=== PATIENT | male | born 1970 | race American Indian/Alaskan Native ===

== ENCOUNTER 2017-04-08 20:23 | Emergency (ER) | payer OTHER ==
[~2017-04-08] VITALS: Ht 190.5 cm; Wt 86.2 kg
[2017-04-08] MEDS ORDERED: CEPHALEXIN500 MG PO (21:34)
== END 2017-04-08 21:53 | disposition home or self-care (01) ==
LOC: ED 20:23
PROC: 0HQ1XZZ Repair Face Skin, External Approach (ICD-10-PCS; principal; 2017-04-08)
DX: S01.511A Laceration without foreign body of lip, initial encounter (principal); Y04.0XXA Assault by unarmed brawl or fight, initial encounter
CPT/HCPCS: 12013; 99283

== ENCOUNTER 2017-09-06 11:25 | Inpatient (IN) | payer OTHER ==
[~2017-09-06] VITALS: Ht 190.5 cm; Wt 84.5 kg
[~2017-09-06 11:25] MED LIST: CEPHALEXIN500 MG PO
--- NOTE | 2017-09-06 15:21 | NUR ---
ASSISTED NURSE WITH GETTING PATIENT ADMITTED AND SETTLED. INITAL VITAL SIGNS TAKEN.
--- NOTE | 2017-09-06 15:36 | NUR ---
patient admited. vitals taken. patient with girl friend in room. patient very painful with movement. patient looks diaphoretic and pale. temp 103.1. ice packs placed under arms and wash cloth placed on forehead. lr running at 200mls/hr. called dr. scherer for update on temp. ds to get note to him.
--- NOTE | 2017-09-06 16:40 | NUR ---
DR. MARINA TO FLOOR TO ASSESS PATIENT.UPDATED ON TEMP AND VITALS. TO SEE PATIENT.
--- NOTE | 2017-09-06 17:16 | NUR ---
LR BOLUS STARTED. MERRUM STARTED. PATIENT CAME TO FLOOR WITH TEMP OF 103.1. DR. MARINA AWARE. PLAN FOR SURGERY. SIGNED CONSENT. NPO. PATIENT HAS URINAL AT BEDSIDE. PLAN FOR SURGERY TONIGHT.
--- NOTE | 2017-09-06 17:39 | NUR ---
lr bolus complete. started antibiotic and maintance fluids. morphine 6 mg given. vitals taken. surgical wipe down done. consent signed.girlfriend in room to assist. scds applied.
--- NOTE | 2017-09-06 19:26 | NUR ---
RECIEVED REPORT FROM DAY SHIFT NURSE. PATIENT RESTING IN BED WITH GIRLFRIEND AT BEDSIDE. IVF INFUSING W/O DIFFICULTY. SCDS IN PLACE. PATIENT DENIES NEEDS AT THIS TIME. CALL LIGHT IN REACH.
--- NOTE | 2017-09-06 20:07 | NUR ---
VS OBTAINED. CALLED MD REGARDING TEMP. OBTAINED ORDER. PLAN FOR SURGERY AT 2100.
--- NOTE | 2017-09-06 20:17 | NUR ---
PATIENT DENIES NEED FOR PAIN MEDICATION AT THIS TIME. STATES HE WOULD LIKE TO TAKE A NAP TIL 2100.
--- NOTE | 2017-09-06 20:55 | NUR ---
OR NURSE TRANSPORTING PATIENT TO OR AT THIS TIME.
--- NOTE | 2017-09-06 23:13 | NUR ---
09/06/17 2311 Nellie Aguilar PT ARRIVED TO PACU. RESTLESS, MAINTAINING OWN AIRWAY.
--- NOTE | 2017-09-06 23:55 | NUR ---
PATIENT BACK TO MS UNIT. TRANSFRERRED FROM STRETCHER TO BED INDEPENDENTLY. BARRIGA IN PLACE. YASMEEN DRAIN IN PLACE. CONT PULSE OX APPLIED. SCDS ON. VS OBTAINED. SIGNIFICANT OTHER AT BEDSIDE. HYDRATION OFFERED. IVF INFUSING W/O DIFFICULTY. MEPILEX INTACT WITH NO DRAINAGE. 2 LAP SITES COVERERD WITH STERISTRIPS, MINIMAL BLOODY DRAINAGE. PT STATES HIS ABD FEELS SORE, RATES PAIN ABOUT 4-5/10. MORPHINE ADMINISTERED. PT DENIES FURTHER NEEDS. CALL LIGHT IN REACH.
--- NOTE | 2017-09-07 01:03 | NUR ---
PT RESTING IN BED. SPOUSE AT BEDSIDE. PT RATES PAIN 3-4/10. DENIES THE NEED FOR PAIN MEDICATION AT THIS TIME. VS OBTAINED. SCDS IN PLACE. CONT. PULSE OX IN PLACE. PT DENIES NEEDS.
--- NOTE | 2017-09-07 02:17 | NUR ---
BARRIGA EMPTIED. YASMEEN DRAIN EMPTIED-SANGUINOUS DRAINAGE. PT RATES PAIN 3/10 AND REQUESTED FOR PAIN MEDICATION. LAP SITE ABOVE UMBILLICUS DRAINING BLOOD ONTO GOWN. COVERED WITH STERILE GAUZE AND SECURED WITH HYPAFIX TAPE. MEPILEX C/D/I. STERISTRIPS ALL INTACT. LUNGS CLEAR, HR REG, NO EDEMA, ACTIVE BS. HYDRATION OFFERED. PT TOLERATING CLEAR LIQUIDS. NO N/V. DENIES FURTHER NEEDS. SCDS IN PLACE, CALL LIGHT IN REACH.
--- NOTE | 2017-09-07 02:55 | NUR ---
VS OBTAINED. PT STATES PAIN AT A TOLERABLE LEVEL, DENIES THE NEED FOR PAIN MEDICATION. PT TOLERATING CLEAR LIX WELL. HE IS ON HIS THIRD APPLE JUICE. SCDS IN PLACE. DENIES FURTHER NEEDS. CALL BARROW IN REACH.
--- NOTE | 2017-09-07 04:35 | NUR ---
PT RESTING IN BED. EMPTIED YASMEEN DRAIN. NO C/O PAIN AT THIS TIME. PT DENIES NEEDS. CALL LIGHT IN REACH.
--- NOTE | 2017-09-07 05:48 | NUR ---
PT REQUESTING FOR PAIN MEDICAITON. RATES PAIN 5/10, MORPHINE ADMINISTERED. BARRIGA REMOVED. PT DENIES FURTHER NEEDS. CALL LIGHT IN REACH.
--- NOTE | 2017-09-07 07:33 | NUR ---
RECIEVED BEDSIDE REPORT FROM MARTHA MARTINEZ. PT SLEEPING, BREATHING EVEN AND UNLABORED. BARRIGA REMOVED AT 0545, DUE TO VOID BY 0945. YASMEEN DRAIN DRAINING WELL. PAIN WELL CONTROLLED WITH 3MG MORPHINE, GIVEN X3 OVERNIGHT. SCD IN PLACE, PULSE OX IN PLACE. NO NAUSEA OR VOMITING. LR @ 125ML/HR. AFREBRILE POST OP.
--- NOTE | 2017-09-07 07:53 | NUR ---
PATIENT IN BED DOING WELL. EMPTIED YASMEEN DRAIN. REFILLED ICE WATER. WHITEBOARD UPDATED, ROOM TIDIED.
--- NOTE | 2017-09-07 10:20 | NUR ---
PT UP AMBULATING IN HALLS WITH AGENT TICKETING GATE. TOLERATING WELL. PT REPORTS PAIN IS WELL CONTROLED.
--- NOTE | 2017-09-07 10:30 | OR ---
[facility] [address], [place] [address] Signed DATE OF OPERATION: 09/06/2017 SURGEON: Chuck Marina MD PREOPERATIVE DIAGNOSIS: Acute appendicitis, possible perforation. POSTOPERATIVE DIAGNOSES: 1. Intra-abdominal abscess with well-formed abscess cavity. 2. Perforated gangrenous appendicitis. PROCEDURES: 1. Laparoscopy with drainage of abdominal abscess. 2. Open appendectomy for perforated appendicitis, prolonged, complicated and difficult. ANESTHESIA: General endotracheal (Ramon Osman CRNA). INDICATION: This 46-year-old man has had pain since Saturday (today is Saturday) in the right lower abdomen. He does show a fair amount of toxicity with a temperature as high as 103 and a white count elevated to 13,000. A CT scan was performed upon his evaluation in the emergency room under the direction of Dr. Nathan Davila, which showed findings consistent with appendicitis and possible perforation based on local findings. He has been fluid resuscitated, given intravenous antibiotics, parenteral pain medication and so forth and he is now to undergo appendectomy preferred by a laparoscopic approach. He understands well the risks of bleeding, infection, need for open procedure, and other unforeseen complications and wished to proceed. FINDINGS: On laparoscopy, an abscess was noted in the right lower abdomen and down into the pelvis. This was drained and Gram stain and cultures were obtained from the fluid. Attempts to mobilize the appendix were unsuccessful as it was densely adherent to the retroperitoneum and therefore, conversion to open laparotomy was required. The operation was certainly prolonged, complicated, and difficult based on the position of the appendix. A well-formed abscess cavity was noted draping over the pelvic brim. The appendix itself was gangrenous and perforated and a fecalith was removed with the specimen. The terminal ileum and cecum though inflamed were not the primary process of problem. A drain was placed as well. The operation was prolonged, complicated, and difficult. Electronically Signed By: CHUCK MARINA MD 09/07/17 1030 PATIENT NAME: KODI GIRALDO OPERATIVE REPORT DATE OF : 74 PHYSICIAN: CHUCK MARINA MD REPORT #: [id number] REPORT IS CONFIDENTIAL AND NOT TO BE RELEASED WITHOUT AUTHORIZATION [facility] [address], [place] [address] Signed DESCRIPTION OF PROCEDURE: The patient was brought to the operating room, given a general endotracheal anesthetic. Preoperative antibiotic meropenem had been given as well as Zosyn in the emergency room. A Clark catheter was placed after general endotracheal anesthesia was induced. The left arm was placed at the side. The abdomen was clipped and prepared with chlorhexidine solution and draped sterilely. An infraumbilical incision was made and using an open Shaila cannula technique, pneumoperitoneum was achieved to a level of 14 mmHg of carbon dioxide gas. Intra-abdominal inspection showed no sign of ascites or carcinomatosis, but purulence was noted in the right pericolic gutter. A 12 mm epigastric port was placed and the camera was replaced to that area. Manipulation through the umbilical port did not demonstrate the appendix. A 5 mm suprapubic port was placed under direct visualization and with two hand manipulation, the cecum could be better manipulated. The terminal ileum was identified as manifested by the antimesenteric fat pad of Trealverto. A well-formed abscess was noted at the confluence of the terminal ileum and the cecum in the retroperitoneal area. Using a tube, a considerable amount of fluid was drained from the abscess cavity and some was sent for Gram stain and culture. With various manipulations, the appendix could not readily be identified. Ultimately, the anterior tenia of the cecum was followed and densely did it go to the retroperitoneum where no further laparoscopic manipulation would be successful, possible or even safe. On that basis, conversion to open operation was required The trocars were removed under direct visualization showing no sign of bleeding. The infraumbilical fascial incision was reapproximated with interrupted 0 Vicryl suture. A transverse incision was made directly over the McBurney's point. Dissection was carried through the subcutaneous tissue with electrocautery. A gridiron incision was used ultimately allowing exposure of the peritoneum, which was incised and the abdomen entered. The cecum was easily delivered into the wound. It was long and somewhat floppy. The tenia libera was followed down to the retroperitoneum where palpation could reveal a dense firm mass. Abscess fluid and a well-formed abscess cavity was noted. Various manipulations were made to deliver the appendix, but it was densely adherent to the retroperitoneum. On that basis, the incision was extended medially a bit more and incising the anterior rectus sheath and retraction of the right rectus abdominis muscle. The peritoneum was further incised and better examination of the cecum and terminal ileum area able to be accomplished. With various manipulations, the appendix could be found extending inferiorly and deeply and with a dense fecalith and firm fibrinous peel. Digital examination ultimately allowed for mobilization of it to better define it. Clips were applied to vascular pedicles as necessary, but it was a very prolonged and arduous dissection ultimately. Finally, the appendix and mesoappendix could be secured with clips, cautery, and 2-0 Vicryl suture mobilizing fully the appendix, which was relatively long, probably 10 to 12 cm in length actually. Gangrenous changes and perforation were noted at the proximal one-quarter of the appendix. The fecalith was extracted with the specimen. The base of the appendix was secured with an Endo ROBERTH stapling device. The Electronically Signed By: CHUCK MARINA MD 09/07/17 1030 PATIENT NAME: KODI GIRALDO OPERATIVE REPORT DATE OF : 74 PHYSICIAN: CHUCK MARINA MD REPORT #: [id number] REPORT IS CONFIDENTIAL AND NOT TO BE RELEASED WITHOUT AUTHORIZATION [facility] [address], [place] [address] Signed staple line was oversewn with interrupted 2-0 Vicryl suture. Irrigation was undertaken and further purulent material was removed from the pelvis. Through a separate stab incision, a 7 mm flat Attila drain was placed in the retrocecal area, draped over the pelvic brim into the pelvis. More irrigation was undertaken and once clear, plans were made for closure. The peritoneal layer was closed with running 2-0 PDS suture. The muscular layers and fascial layers closed with interrupted 2-0 PDS. Harvey's layer was reapproximated with interrupted 2-0 Vicryl and skin was closed with interrupted 3-0 Vicryl. Steri-Strips were applied to this area. The laparoscopic incisions were similarly closed with interrupted 3-0 Vicryl in deep dermal layer and Steri-Strips were applied. A Mepilex silver sponge dressing was applied to the right lower abdominal site. The drainage emanated from the separate stab incision was secured with nylon suture and attached to bulb suction. The patient was ultimately extubated and transferred to recovery room in good condition having suffered no complications. Sponge, needle, and instrument counts reported as correct x3. MD CLARE Awad/MODL /[id number] cc: Nathan Davila DO Electronically Signed By: CHUCK MARINA MD 09/07/17 1030 PATIENT NAME: KODI GIRALDO OPERATIVE REPORT DATE OF : 74 PHYSICIAN: CHUCK MARINA MD REPORT #: [id number] REPORT IS CONFIDENTIAL AND NOT TO BE RELEASED WITHOUT AUTHORIZATION
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
--- NOTE | 2017-09-07 11:48 | NUR ---
nurse in room
--- NOTE | 2017-09-07 13:01 | NUR ---
OPENED BLINDS, PT AWAKE, WATCHING TV. PT INDEPENDENT IN ROOM, UP TO BATHROOM SEVERAL TIMES. REMINDED TO JESSICA VOIDS/BM ON CHART OR SAVE UNTIL STAFF CAN CHART.
--- NOTE | 2017-09-07 15:25 | NUR ---
TOOK PT FOR A WALK.
--- NOTE | 2017-09-07 16:31 | NUR ---
PT IS SLEEPING. WILL CHECK ON LATER.
--- NOTE | 2017-09-07 18:19 | NUR ---
PT SLEEPING IN BED. TOOK VITALS.
--- NOTE | 2017-09-07 18:36 | NUR ---
PT UP TO AMBULATE SEVERAL TIMES. PER DR MARINA, RN OPENED BLINDS AND TURNED ON LIGHTS TO MAINTAIN NORMAL SLEEP PATTERNS. PT UP TO BATHROOM INDEPENDENTLY. ENCOURAGE FLUIDS URINE OUTPUT IS QS, BUT ON THE LOW END. PAIN WELL CONTROLED ON PO PAIN MEDICATIONS. PT REPOSITIONS SELF. TOLERATING ADVANCE TO FULL LIQUIDS WELL.
--- NOTE | 2017-09-07 19:22 | NUR ---
RECIEVED REPORT FROM DAY SHIFT NURSE. PT RESTING QUIETLY IN BED. GIRLFRIEND AT BEDSIDE. SCDS IN PLACE. PT DENIES NEEDS AT THIS TIME. CALL LIGHT IN REACH.
--- NOTE | 2017-09-07 20:00 | NUR ---
PATIENT RESTING IN BED. STATES HE FEELS "SEVERELY BLOATED." RATES PAIN 7/10, STATES IT FEELS LIKE PRESSURE. ABDOMEN IS FIRM. ADMINISTERED IV PAIN MEDICATION. REPOSITIONED LEGS UP ON TWO PILLOWS. PT STATES HE HAS PASSED FLATUS TODAY. NO N/V. HE DID DRINK A PITCHER OF WATER AROUND 3PM TODAY SO THAT HE COULD VOID. HE HAS NOT FELT GREAT EVER SINCE THEN. I TOLD HIM TO LAY OFF THE ORAL LIQUIDS FOR NOW UNTIL HE FEELS LESS BLOATED. APPLIED CONT. PULSE OX. SCDS IN PLACE. MEPILEX C/D/I. LUNGS CLEAR, HR REGULAR. NO EDEMA. PT IS DIAPHORETIC-ORAL TEMP AT 99.4, REMOVED BLANKETS. PT DENIES CHILLS. CALL LIGHT IN REACH.
--- NOTE | 2017-09-07 21:01 | NUR ---
AMBULATED HALLWAY WITH PATIENT. PT STATES HIS PAIN IS WORSE WITH AMBULATION, HOWEVER HE DENIES THE NEED FOR MORE PAIN MEDS.
--- NOTE | 2017-09-07 22:02 | NUR ---
PT PASSED FLATUS! VOIDING AT THIS TIME.
--- NOTE | 2017-09-08 00:01 | NUR ---
PT AMBULATING HALLWAY WITH SIGNIFICANT OTHER. PT STATES HIS ABDOMINAL DISTENTION IS "MODERATE." STATES HE IS STILL PASSING SMALL AMOUNT OF FLATUS. PT IS NO LONGER DIAPHORETIC. REQUESTS FOR PAIN MEDICATION. NORCO ADMINISTERED. SCDS IN PLACE. IVF INFUSING W/O DIFFICULTY.
--- NOTE | 2017-09-08 02:30 | NUR ---
I HAD TO WAKE PT UP TO VOID. PT ABLE TO VOID 150CC. URINE CHANG IN COLOR. PT STATES HE DID NOT EAT ENOUGH PUDDING WHEN HE TOOK THE NORCO EARLIER, FEELS NAUSEOUS. HE ALSO RATES HIS PAIN 4/10, ADMINISTERED PHENERGAN. PT DENIES FURTHER NEEDS. BS AUSCULTATED. YASMEEN DRAINING SMALL AMOUNT OF SEROUS FLUID. MEPILEX C/D/I. CALL LIGHT IN REACH.
--- NOTE | 2017-09-08 04:21 | NUR ---
PT SLEEPING. CONT. PULSE OX IN PLACE. CALL LIGHT IN REACH.
--- NOTE | 2017-09-08 06:30 | NUR ---
PT HAD NO URINE OUTPUT FOR THE LAST FOUR HOURS. BLADDER SCANNED TO FIND 40CC IN BLADDER. NOTIFIED MD OF NO URINE. OBTIANED ORDER FOR LR BOLUS. PT DENIES NEED FOR PAIN MEDICATION AT THIS TIME. CALL BARROW IN REACH.
--- NOTE | 2017-09-08 08:30 | NUR ---
PATIENT SLEEPING WITH LIGHTS DARK. WOKE PATIENT AND WHO WAS LAYING ON COUGH. GETTING AGGITATED THAT I WAS NOT LETTING PATIENT SLEEP. UPDATED ON PLAN OF CARE AND ORDERS. ALL IN ROOM AGREED TO HAVE CURTAINS AND LIGHTS ON AT 0915. PATIENT THEN AGREED TO TAKE MEDICATIONS AND AMBULATE IN [place]. PATIENT ABLE TO VOID 100MLS OF DARK CHANG URINE. PATIENT STATING HE DID NOT FEEL LIKE HE COULD VOID ANY MORE. STARTED 2ND LR BOLUS. UPDATED PATIENT. ABD DRESSING C/D/I. YASMEEN WITH MINIMAL OUTPUT. PATIETNTS ABD IS FIRM AND HYPOACTIVE. INFORMED HIM OF THE IMPORTANCE OF AMBULATING TODAY.
--- NOTE | 2017-09-08 09:17 | NUR ---
TOOK PT TO BR. FRESH ICE WATER.
--- NOTE | 2017-09-08 09:18 | NUR ---
assisted patien to edge of bed. patient ate breakfast. assisted to the br. patient passing flatus and stating he has to have a bm. asleep on cough.lights on. no nausea at this time. pt c/o abd pain with movement.
--- NOTE | 2017-09-08 09:45 | NUR ---
PATIENT AMBULATED IN THE [place]. [facility] ASSIST. TOLERATED ALL OF BREAKFAST AND TAKING PO MEDS.
--- NOTE | 2017-09-08 09:51 | NUR ---
patient ambulated self back to bed. stating that he could not tolerate the chair. havng increased pain. 2 mg morphine given for breakthrough pain. scds applied. patient agreed to ambulate in the [place] later this afternoon.
--- NOTE | 2017-09-08 12:00 | NUR ---
PATIENT AMBULATED 3 LAPS IN [place]. TOLERATED WELL. AMBULATING BY HIMSELF. TOLERATED 75 PERCENT OF LUNCH. URINAL SET TO BEDSIDE FOR PATIENT TO ATTEMPT TO VOID AGAIN.
--- NOTE | 2017-09-08 12:35 | NUR ---
PATIENT WAS ASKED TO ATTEMPT TO VOID. PATIENT ABLE TO VOID 50ML OF DARK CHANG URINE. TOLD THE PATIENT I WAS SETTING URINAL CLOSE SO HE COULD ATTEMPT TO GO AGAIN.
--- NOTE | 2017-09-08 14:03 | NUR ---
ROUNDED WITH DR. MARINA IN ROOM. CONTINUE WITH ORDERS. WILL DO ANOTHER LR BOLUS. CONTINUE TO AMBULATE IN [place]. PATIENT AGREED TO NEW PLAN OF CARE.
--- NOTE | 2017-09-08 15:25 | NUR ---
bolus finished. patient voided 500mls of light nate urine. ambulated in room. continues to sleep in room. patient stating pain improving from this morning. continue fluid at 125ml/hr
--- NOTE | 2017-09-08 16:07 | NUR ---
PT IS SLEEPING WILL CHECK BACK
--- NOTE | 2017-09-08 16:51 | NUR ---
patient called to use the rest room. patient voided another 500mls of nate color urine. patient ambuating in room well. assisted back to bed. scds in place. ordered dinner. patient remains on full liquid diet. no nausea at this time. would like pain medication with dinner.
--- NOTE | 2017-09-08 17:37 | NUR ---
fresh ice water. empty urnail. emptyed patricio tube
--- NOTE | 2017-09-08 18:15 | NUR ---
patient tolerating 100 percent of dinner. no nausea at this time. abd remains tight to the tough and tender. hypoactive bs. patient reports that he is still passing flatus.
--- NOTE | 2017-09-08 19:17 | NUR ---
RECIEVED REPORT FROM DAY SHIFT NURSE. PATIENT RESTING IN BED. IVF INFUSING W/O DIFFICULTY. SCDS IN PLACE. PATIENT DENIES NEEDS AT THIS TIME. SIG. OTHER AT BEDSIDE. CALL LIGHT IN REACH.
--- NOTE | 2017-09-08 21:31 | NUR ---
PT RESTING IN BED. STATES PAIN AT A TOLERABLE LEVEL. IVF INFUSING W/O DIFFICULTY. SCDS IN PLACE. PT PASSING FLATUS. BS HYPOACTIVE. LUNGS CLEAR. HR REGULAR. DENIES NEEDS. CALL LIGHT IN REACH.
--- NOTE | 2017-09-08 22:24 | NUR ---
PATIENT SLEEPING. IVF INFUSING. SCDS ON. CALL LIGHT IN REACH.
--- NOTE | 2017-09-09 00:57 | NUR ---
PT RESTING IN BED. STATES HIS PAIN IS AT A TOLERABLE LEVEL. REFILLED WATER PITCHER. DENIES NEEDS. CALL LIGHT IN REACH.
--- NOTE | 2017-09-09 02:28 | NUR ---
PT RESTING IN BED. RATES ABDOMINAL PAIN 2/10, AND REQUESTED PAIN MEDICATION. I GAVE HIM THE OPTION OF TAKING ONLY 1 NORCO BUT HE REQUESTED FOR TWO BECAUSE THAT HAS BEEN WORKING FOR HIM. BS HYPOACTIVE, MILDLY DISTENDED FIRM, PASSING FLATUS. MEPILEX SMALL AMOUNT OF DRAINAGE. YASMEEN DRAINING SCANT AMOUNT OF SEROUS FLUID. SCDS IN PLACE. SNACK DELIVERED. PT DENIES FURTHER NEEDS.
--- NOTE | 2017-09-09 04:19 | NUR ---
PT RESTING IN BED. DENIES NEEDS. CALL LIGHT IN REACH.
--- NOTE | 2017-09-09 06:51 | NUR ---
PT RESTING IN BED. DENIES NEEDS. CALL LIGHT IN REACH.
--- NOTE | 2017-09-09 07:33 | NUR ---
REPORT RECEIVED FROM JUAN. ASSUMING CARE FOR PATIENT AT THIS TIME. PATIENT APPEARS TO BE ASLEEP DURING REPORT. RR EVEN/UNLABORED. NO APPARENT DISTRESS NOTED. WILL CONTINUE TO MONITOR.
--- NOTE | 2017-09-09 08:00 | NUR ---
IN TO ROOM TO ASSESS PATIENT. PATIENT DENIED NAUSEA AND REPORTED VERY MILD PAIN. ADB DRESSING ON THE LOWER ABD DRY AND INTACT EXCEPT AT THE YASMEEN SITE WHICH HAD SOME SHADOWING. YASMEEN DRAIN IN PLACE WITH VERY MINIMAL DRAINAGE. ADB FIRM WITH MILD DISTENTION. BOWEL TONE ACTIVE. PATIENT REPORTED PASSING FLATUS AND HAD 2BM'S YESTERDAY. SCD ON. IV SITE PATENT AND FLUID INFUSING WELL.
--- NOTE | 2017-09-09 10:27 | NUR ---
PATIENT RESTING IN BED REPORTED 5/1O ABD PAIN AT THE INCISION SITE. PATIENT WAS MEDICATED. OTHER MORNING MEDS WERE ADMINISTERED. PATIENT DENIES ANY NAUSEA. PATIENT IS ENCOURGED TO AMBULATE.
--- NOTE | 2017-09-09 11:06 | NUR ---
PATIENT WAS UP AMBULATING IN THE HALLWAY. TOLERATED WELL. RESTING IN BED AT THIS TIME. ICE TEA ORDER PER PATIENT REQUEST.
--- NOTE | 2017-09-09 12:11 | NUR ---
PATIENT WAS TO BATHROOM. REPORTS RELIEF OF HIS PAIN. ATE 100% OF HIS LUNCH. DENEIS NAUSEA. RESTING IN BED AT THIS TIME. NO ACUTE DISTRESS. FAMILY AT BEDSIDE.
--- NOTE | 2017-09-09 13:05 | NUR ---
DR MARINA WAS IN TO SEE AND RE-EVALUATE PATIENT AND DISCUSS PLAN OF CARE. PLAN TO ADVANCED DIET TO REGULAR. DRESSING WAS REMOVED PER DR MARINA. PATIENT CAN SHOWER NOW PER MD ORDER. PATIENT WAS UP TO BATROOM TO SHOWER.
--- NOTE | 2017-09-09 14:42 | NUR ---
PATIENT WAS UP TO BATHROOM TO SHOWER. DENIES PAIN AND NAUSEA. RESTING IN BED AT THIS TIME.
--- NOTE | 2017-09-09 15:59 | NUR ---
PATIENT TOOK A SHOWER THIS MORNING HIS SIGNIFICANT OTHER HELPED HIM.
--- NOTE | 2017-09-09 17:40 | NUR ---
PATIENT RESTING IN BED WATCHING TV. DENIES NAUSEA. PATIENT TOLERATED REGULAR DIET WELL. REPORTS NO PAIN AT THIS TIME. NO REQUEST MADE.
--- NOTE | 2017-09-09 18:22 | NUR ---
PATIENT HAD DONE WELL FOR THIS SHIFT. HAD BEEN UP AMBULATING IN THE HALLWAY THREE TIMES TODAY. HAD SHOWERED. INCISION IN LOWER ABD OPEN TO AIR WITH STERY STRIP. YASMEEN IN PLACE WITH SCANT AMOUNT OF SEROUS FLUID. PATIENT IS S/L NOW. GOOD PO INTAKE AND GOOD OUTPUT. POSITIVE BOWEL TONES, BM X 1 TODAY. MAY DC TOMORROW.
--- NOTE | 2017-09-09 19:43 | NUR ---
RECIEVED REPORT FROM DAY SHIFT NURSE. PATIENT RESTING IN BED. DENIES NEEDS. CALL LIGHT IN REACH.
--- NOTE | 2017-09-09 21:09 | NUR ---
PATIENT RESTING IN BED. RATES ABDOMINAL PAIN 2/10. DENIES NEED FOR PAIN MEDICATION. INCISIONS ARE ALL WNL, NO S/S OF INFECTION (3 LAPS SITES & RLQ INCISION S/P OPEN APPENDECTOMY). YASMEEN DRAIN SITE WNL, SUTUTES INTACT. PLACED DRAINAGE SPONGE OVER SITE FOR SMALL AMOUNT OF SEROUS FLUID, SAFETY PINNED YASMEEN DRAIN TO GOWN. HYPOACTIVE BS, PASSING FLATUS. LUNGS CLEAR, HR REGULAR. PT DENIES NEEDS AT THIS TIME. CALL LIGHT IN REACH.
--- NOTE | 2017-09-09 22:34 | NUR ---
PATIENT CALLED AND WANTS 7 UP AND PAIN MED. NURSE NOTIFIED. REGULAR [place] COTT GIVEN.
--- NOTE | 2017-09-09 22:45 | NUR ---
PT C/O PAIN IN ABD. ADMINISTERED PAIN MEDICATION PER PT REQUEST. CALL LIGHT IN REACH. SIGNIFICANT OTHER AT BEDSIDE.
--- NOTE | 2017-09-10 00:33 | NUR ---
PATIENT SLEEPING. CALL LIGHT IN REACH.
--- NOTE | 2017-09-10 02:32 | NUR ---
PATIENT CALLED. EMPTIED URINAL AND TOILET HAT. ASKED 7UP, GIVEN.
--- NOTE | 2017-09-10 02:35 | NUR ---
COUNTER CUTTER IN TO EMPTY URINAL AND HAT. PT DENIES FURTHER NEEDS.
--- NOTE | 2017-09-10 02:43 | NUR ---
PT RESTING IN BED. REQUESTS FOR PAIN MEDICAITON. 1 TAB NORCO GIVEN. NO CHANGE FROM PREVIOUS ASSESSMENT. DRESSING INTACT AROUND YASMEEN DRAIN. STERISTRIPS INTACT ON SURGICAL SITES. WATER PITCHER FILLED. PT DENIES FURTHER NEEDS. CALL LIGHT IN REACH.
--- NOTE | 2017-09-10 04:16 | NUR ---
PATIENT RESTING IN BED. DENIES NEEDS. CALL LIGHT IN REACH.
--- NOTE | 2017-09-10 05:49 | NUR ---
PATIENT WAS UP FOR MOST OF THE NIGHT. REQUESTED FOR PAIN MEDICATION X2. YASMEEN WITH SCANT DRAINAGE.
--- NOTE | 2017-09-10 07:55 | NUR ---
PT CALLED FOR PAIN MEDICATION. RATES 3/10 IN RLQ. DRAIN HAS SCANT AMT FLUID. SITES CDI. HAD BM THIS MORNING AFTER BREAKFAST. NO NAUSEA.
--- NOTE | 2017-09-10 10:55 | NUR ---
PATIENT RESTING IN BED WITH EYES CLOSED. GIRLFRIEND IN ROOM. FRESH ICE WATER GIVEN. NO OTHER NEEDS AT THIS TIME.
--- NOTE | 2017-09-10 11:04 | NUR ---
PT HOPING TO GO HOME TODAY. EXPLAINED THAT DR IS PROBABLY IN SURGERY AND WILL BE IN SOON POSSIBLE.
--- NOTE | 2017-09-10 12:38 | NUR ---
WOKE PT AND OPENDED BLINDS. HAD PT ORDER LUNCH AND ADMINISTERED MEDS. PT DENIES FURTHER CONCERNS.
--- NOTE | 2017-09-10 14:07 | NUR ---
REFILLED ICE WATER
[2017-09-10] MEDS ORDERED: METRONIDAZOLE250 MG PO (15:46)
[2017-09-10] MEDS ORDERED: CIPROFLOXACIN250 MG PO (15:46)
[2017-09-10] MEDS ORDERED: HYDROCODON-ACE1 EA10 PO (15:47)
--- NOTE | 2017-09-10 16:38 | NUR ---
PT DISCHARGED HOME WITH . PT VS STABLE. WHEELED OUT WITH METHODS AND PROCEDURES ANALYST. IV REMOVED WNL. DR REMOVED YASMEEN WNL. STERI STRIPS IN PLACE. EDUCATATION GIVEN, PT AND VERBALIZED UNDERSTANDING. SCRIPTS SENT HOME WITH THEM.
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
== END 2017-09-10 16:10 | disposition home or self-care (01) | DRG 343 ==
LOC: ED 11:25 → MS 11:27
PROVIDERS: ADMIT Surgery
PROC: 0DTJ0ZZ Resection of Appendix, Open Approach (ICD-10-PCS; principal; 2017-09-06 21:00)
PROC: 0DJD4ZZ Inspection of Lower Intestinal Tract, Percutaneous Endoscopic Approach (ICD-10-PCS; 2017-09-06 21:00)
DX: K35.80 Unspecified acute appendicitis (principal)
CPT/HCPCS: 00840; 36415; 51701; 74177; 80048; 80053; 81001; 82150; 83690; 85025; 87070; 87077; 87186; 87205; 94760; 94762; 96365; 96375; 96376; 99285; J1170; J1644; J1885; J2185; J2270; J2370; J2405; J2543; J2550; J2704; J3010; J7030; J7120; Q9967